=== PATIENT | male | born 1950 | race Caucasian/White ===

== ENCOUNTER 2018-04-03 15:19 | Inpatient (IN) | payer OTHER ==
[~2018-04-03] VITALS: Ht 177.8 cm; Wt 83.5 kg
--- NOTE | ~2018-04-03 | HC ---
[facility] [place] [address] CONSULTATION Name: MEHRAN FRAUSTO Room #: 358-P ADM IN M.R.#: [id number] Admission: 04/03/18 Attend Phys: Shawn Caldwell DO Discharge: Date of : 46 Report #: [id number] THIS REPORT FOR: //name// CC: Reymundo Caldwell DATE OF SERVICE: 04/05/2018 INFECTIOUS DISEASES CONSULTATION REASON FOR CONSULTATION: Acute appendicitis with possible abscess. HISTORY OF PRESENT ILLNESS: The patient is a 67-year-old with advanced ALS who has been bedbound and confined to a wheelchair for last several years. Three days ago, he had the acute onset of abdominal pain associated with fevers and chills. There was some dysuria. No nausea or vomiting. Has been constipated. Presented through the Emergency Room where a CAT scan showed evidence of inflammatory change of the cecum with 6 x 7 cm sized abscess. It was suspected appendiceal in nature. Also had some inflammation, which extended to the sigmoid colon. Placed on Zosyn. Fever went up to 103.1 degrees, now defervesced and feels somewhat better. Still having some right lower quadrant tenderness and some discomfort. He was evaluated for a drain, but no definite drainable fluid pocket was able to be established. No prior history of colon issues. No trauma. REVIEW OF SYSTEMS: CONSTITUTIONAL: As noted above. EYES: Negative. HEENT: Negative. RESPIRATORY: Negative. CARDIOVASCULAR: Negative. GASTROINTESTINAL: As above. GENITOURINARY: As above. MUSCULOSKELETAL: Negative. SKIN: Negative. NEUROLOGIC: ALS with paralysis of lower extremities. He does have some movement in his upper extremities. PSYCHIATRIC: Negative. LYMPHATIC: Negative. ALLERGIES: None. MEDICATIONS: As noted on his MAR including Zosyn. PAST MEDICAL HISTORY: ALS, hemorrhoids and some constipation issues. [facility] [address] [place] [address] CONSULTATION Name: MEHRAN FRAUSTO Room #: 358-P [facility] IN M.R.#: [id number] Admission: 04/03/18 Attend Phys: Shawn Caldwell DO Discharge: Date of : 46 Report #: [id number] FAMILY HISTORY: Noncontributory. SOCIAL HISTORY: Nonsmoker. No significant alcohol intake. Lives independently. PHYSICAL EXAMINATION: VITAL SIGNS: Afebrile and hemodynamically stable. GENERAL: He is alert and cooperative. In no acute distress. HEENT: Atraumatic. Pupils are equal, round and reactive to light. No conjunctivitis or scleral icterus. Mouth without lesion. NECK: Supple. SKIN: Without rash or lesion. LYMPH: Without palpable adenopathy. LUNGS: Clear. HEART: Regular. ABDOMEN: Soft with tenderness in the right lower quadrant. No guarding or rebound. Mild protuberance of his abdomen. Did have positive bowel sounds. GENITOURINARY: Had a Ramires catheter. External genitalia without rash or lesion. EXTREMITIES: Peripheral IV in place without drainage. NEUROLOGIC: Paralysis below the waist. Some weakness in his upper extremities. Cranial nerves intact. LABORATORY STUDIES: INR 1. Creatinine 0.4. Hemoglobin 13.9, platelet count 346,000, white count was 19.1 down from 25,000 yesterday. Urinalysis had 2+ protein, otherwise unremarkable. Blood cultures are pending. Repeat CT scan of the abdomen and pelvis today showed changes of appendicitis with phlegmonous changes and no drainable abscess. IMPRESSION: 1. Advanced amyotrophic lateral sclerosis. 2. Appendicitis with localized perforation and phlegmonous change. No drainable abscess. 3. Chronic constipation. 4. Hemorrhoids. RECOMMENDATIONS: We will continue IV antibiotic therapy with Zosyn. Place PICC line. We will need to get the area to calm down and proceed with elective surgery. We will need to follow this with serial imaging to ensure no drainable abscess develops. <ELECTRONICALLY SIGNED> By: Esa Abdalla MD 04/06/18 1318 [id number] Esa Abdalla MD /nt
[2018-04-03 15:20] VITALS: BP 125/73
[2018-04-03 15:41] LABS: HEMATOCRIT 46.5 % (42.0-52.0); HEMOGLOBIN 16.3 gm/dL (14.0-18.0); MCV 94.4 fL (80.0-100.0); PLATELET COUNT 345 thou/uL (150-400); RBC 4.92 mil/uL (4.50-6.00); RDW 12.9 % (10.5-14.5)
[2018-04-03 15:47] LABS: CALCIUM 9.2 mg/dL (8.5-10.1); CREATININE 0.5 mg/dL (0.7-1.3); POTASSIUM 4.2 mmol/L (3.5-5.1)
[2018-04-03 15:53] LABS: ALBUMIN 2.5 g/dL (3.4-5.0); TOTAL BILIRUBIN 1.8 mg/dL (<0.1-1.0); TOTAL PROTEIN 6.5 g/dL (6.4-8.2)
[2018-04-03 15:59] LABS: ABSOLUTE NEUTROPHILS 21.8 thou/uL (1.4-8.2)
[2018-04-03 16:00] LABS: ANISOCYTOSIS 1+; POLYCHROMASIA OCCASIONAL
[2018-04-03 16:42] LABS: URINE BILIRUBIN NEGATIVE (Negative); URINE BLOOD TRACE (Negative); URINE CLARITY CLEAR; URINE COLOR YELLOW; URINE GLUCOSE-RANDOM* NEGATIVE (Negative); URINE KETONES 1+ (Negative); URINE LEUKOCYTES-REFLEX NEGATIVE (Negative); URINE NITRITE-REFLEX NEGATIVE (Negative); URINE PROTEIN (DIPSTICK) 2+ (Negative); URINE SPECIFIC GRAVITY 1.025 (1.005-1.035)
[2018-04-03 16:54] LABS: BACTERIA-REFLEX 1-9 Few /HPF (None Seen); CASTS None Seen /LPF (None Seen); SQUAMOUS None Seen /LPF (0-3); URINE RBC 0-2 Rare /HPF (0-2); URINE WBC-REFLEX None Seen /HPF (0-5)
[2018-04-03 16:55] LABS: AMORPHOUS URATES Few /LPF (None Seen)
[2018-04-03 17:58] VITALS: BP 123/72
[2018-04-03 18:57] VITALS: BP 114/70
[2018-04-03] MEDS ORDERED: ESTAZOLAM2 MG PO (19:09)
[2018-04-03] MEDS ORDERED: VITAMIN A10000 UNI3 (19:10)
[2018-04-03] MEDS ORDERED: VITAMIN E400 UNIT PO (19:10)
[2018-04-03] MEDS ORDERED: VITAMINC500 PO (19:11)
[2018-04-03 19:46] VITALS: BP 116/67
[2018-04-03 23:59] VITALS: BP 104/50
[2018-04-04 04:21] VITALS: BP 135/67
[2018-04-04 06:16] LABS: HEMATOCRIT 43.1 % (42.0-52.0); HEMOGLOBIN 15.3 gm/dL (14.0-18.0); MCH 33.7 pg (26.0-34.0); MCHC 35.4 g/dL (28.0-37.0); MCV 95.3 fL (80.0-100.0); RBC 4.53 mil/uL (4.50-6.00); RDW 13.1 % (10.5-14.5); WBC 18.7 thou/uL (4.0-11.0)
[2018-04-04 06:24] LABS: CALCIUM 8.6 mg/dL (8.5-10.1); CREATININE 0.4 mg/dL (0.7-1.3)
[2018-04-04 06:33] LABS: POTASSIUM 3.2 mmol/L (3.5-5.1)
[2018-04-04 07:20] VITALS: BP 110/50
[2018-04-04 11:16] VITALS: BP 97/59
[2018-04-04 15:47] VITALS: BP 110/66
[2018-04-04 19:05] VITALS: BP 118/72
[2018-04-05 03:14] VITALS: BP 132/70
[2018-04-05 06:07] LABS: HEMATOCRIT 40.8 % (42.0-52.0); HEMOGLOBIN 13.9 gm/dL (14.0-18.0); MCH 32.8 pg (26.0-34.0); MCV 96.5 fL (80.0-100.0); RBC 4.23 mil/uL (4.50-6.00); RDW 13.4 % (10.5-14.5); WBC 19.1 thou/uL (4.0-11.0)
[2018-04-05 06:26] LABS: CREATININE 0.4 mg/dL (0.7-1.3); POTASSIUM 3.1 mmol/L (3.5-5.1)
[2018-04-05 07:53] VITALS: BP 96/52
[2018-04-05 07:55] LABS: PROTIME 10.6 Seconds (9.3-11.4)
[2018-04-05 11:54] VITALS: BP 115/64
[2018-04-05 15:30] VITALS: BP 111/67
[2018-04-05 20:10] VITALS: BP 111/71
[2018-04-06 04:35] VITALS: BP 123/76
[2018-04-06 07:00] LABS: HEMATOCRIT 38.3 % (42.0-52.0); HEMOGLOBIN 13.3 gm/dL (14.0-18.0); MCHC 34.7 g/dL (28.0-37.0); MCV 94.9 fL (80.0-100.0); RBC 4.04 mil/uL (4.50-6.00); RDW 12.9 % (10.5-14.5); WBC 17.3 thou/uL (4.0-11.0)
[2018-04-06 07:07] LABS: CALCIUM 8.1 mg/dL (8.5-10.1); CREATININE 0.4 mg/dL (0.7-1.3); POTASSIUM 3.2 mmol/L (3.5-5.1)
[2018-04-06 07:48] VITALS: BP 119/70
[2018-04-06 11:44] VITALS: BP 111/70
[2018-04-06 16:10] VITALS: BP 113/70
[2018-04-06 19:50] VITALS: BP 124/77
[2018-04-07 04:20] VITALS: BP 146/85
[2018-04-07 07:26] VITALS: BP 121/77
[2018-04-07 11:10] VITALS: BP 138/88
[2018-04-07 16:00] VITALS: BP 134/95
[2018-04-07 19:57] VITALS: BP 142/94
[2018-04-08 03:18] VITALS: BP 145/89
[2018-04-08 05:41] LABS: HEMATOCRIT 41.7 % (42.0-52.0); HEMOGLOBIN 14.7 gm/dL (14.0-18.0); MCH 33.3 pg (26.0-34.0); MCHC 35.4 g/dL (28.0-37.0); MCV 94.1 fL (80.0-100.0); RBC 4.43 mil/uL (4.50-6.00); RDW 13.1 % (10.5-14.5); WBC 19.1 thou/uL (4.0-11.0)
[2018-04-08 05:52] LABS: ALBUMIN 2.3 g/dL (3.4-5.0); CREATININE 0.4 mg/dL (0.7-1.3); POTASSIUM 3.7 mmol/L (3.5-5.1); TOTAL BILIRUBIN 0.7 mg/dL (<0.1-1.0); TOTAL PROTEIN 6.1 g/dL (6.4-8.2)
[2018-04-08 07:17] VITALS: BP 126/87
[2018-04-08 11:39] VITALS: BP 126/89
[2018-04-08 15:54] VITALS: BP 117/89
[2018-04-08 19:03] VITALS: BP 143/86
[2018-04-09 04:23] VITALS: BP 125/83
[2018-04-09 08:03] VITALS: BP 123/90
[2018-04-09 11:53] VITALS: BP 124/85
[2018-04-09 16:02] VITALS: BP 126/72
[2018-04-09 19:40] VITALS: BP 135/88
[2018-04-10 03:50] VITALS: BP 126/79
[2018-04-10 05:09] LABS: CALCIUM 9.2 mg/dL (8.5-10.1); CREATININE 0.5 mg/dL (0.7-1.3)
[2018-04-10 05:17] LABS: HEMATOCRIT 46.3 % (42.0-52.0); MCH 32.8 pg (26.0-34.0); MCHC 34.5 g/dL (28.0-37.0); MCV 95.2 fL (80.0-100.0); PLATELET COUNT 426 thou/uL (150-400); RBC 4.87 mil/uL (4.50-6.00); RDW 13.1 % (10.5-14.5); WBC 20.2 thou/uL (4.0-11.0)
[2018-04-10 08:15] VITALS: BP 110/78
[2018-04-10 08:22] LABS: ABSOLUTE NEUTROPHILS 16.4 thou/uL (1.4-8.2)
[2018-04-10 11:26] VITALS: BP 115/79
[2018-04-10 16:11] VITALS: BP 106/74
[2018-04-10 19:40] VITALS: BP 134/82
[2018-04-11 03:15] VITALS: BP 124/84
[2018-04-11 07:22] VITALS: BP 119/84
[2018-04-11 08:34] LABS: HEMOGLOBIN 15.7 gm/dL (14.0-18.0); MCH 32.2 pg (26.0-34.0); MCHC 33.4 g/dL (28.0-37.0); MCV 96.4 fL (80.0-100.0); RBC 4.88 mil/uL (4.50-6.00); WBC 16.4 thou/uL (4.0-11.0)
[2018-04-11 08:41] LABS: CALCIUM 9.3 mg/dL (8.5-10.1); CREATININE 0.6 mg/dL (0.7-1.3); POTASSIUM 3.9 mmol/L (3.5-5.1)
[2018-04-11 12:02] VITALS: BP 133/90
[2018-04-11 16:06] VITALS: BP 135/92
[2018-04-11 19:21] VITALS: BP 135/88
[2018-04-12 03:44] VITALS: BP 126/86
[2018-04-12 08:01] VITALS: BP 145/96
[2018-04-12 11:25] VITALS: BP 131/81
[2018-04-12] MEDS ORDERED: ZOSYN 3.373.375 GM/1 IV (12:21)
[2018-04-12] MEDS ORDERED: COLACE 100 MG100 MG PO (12:21)
[2018-04-12 12:59] LABS: URINE BILIRUBIN NEGATIVE (Negative); URINE BLOOD NEGATIVE (Negative); URINE CLARITY CLEAR; URINE COLOR YELLOW; URINE GLUCOSE-RANDOM* NEGATIVE (Negative); URINE KETONES NEGATIVE (Negative); URINE LEUKOCYTES-REFLEX NEGATIVE (Negative); URINE NITRITE-REFLEX NEGATIVE (Negative); URINE PROTEIN (DIPSTICK) NEGATIVE (Negative); URINE SPECIFIC GRAVITY <= 1.005 (1.005-1.035); URINE UROBILINOGEN 0.2 E.U./dl (0.2-1.0)
== END 2018-04-12 16:33 | DRG 871 ==
LOC: ER 15:19 → EROBS 17:52 → 3W 17:52
PROVIDERS: Hospitalist; Physician Assistant; Radiology Diagnostic Radiology; Specialist; Student in an Organized Health Care Education/Training Program
PROC: B54MZZA Ultrasonography of Right Upper Extremity Veins, Guidance (ICD-10-PCS; principal; 2018-04-05)
PROC: 05HB33Z Insertion of Infusion Device into Right Basilic Vein, Percutaneous Approach (ICD-10-PCS; principal; 2018-04-05)
DX: A41.9 Sepsis, unspecified organism (principal); K35.2 Acute appendicitis with generalized peritonitis; E43 Unspecified severe protein-calorie malnutrition; N39.0 Urinary tract infection, site not specified; G12.21 Amyotrophic lateral sclerosis; G82.20 Paraplegia, unspecified; J90 Pleural effusion, not elsewhere classified; N13.9 Obstructive and reflux uropathy, unspecified; E86.0 Dehydration; K59.09 Other constipation; K64.9 Unspecified hemorrhoids; M62.84 Sarcopenia; E87.6 Hypokalemia; G47.00 Insomnia, unspecified; Z79.899 Other long term (current) drug therapy
CPT/HCPCS: 10779; 27000

== ENCOUNTER → 2018-04-19 | Outpatient (CLI) | payer OTHER ==
[~2018-04-19] MED LIST: COLACE 100 MG100 MG PO; ESTAZOLAM2 MG PO; VITAMIN A10000 UNI3; VITAMIN E400 UNIT PO; VITAMINC500 PO; ZOSYN 3.373.375 GM/1 IV
== END ==
LOC: OPONC 01:34
DX: K36 Other appendicitis (principal); R10.31 Right lower quadrant pain; D72.828 Other elevated white blood cell count
CPT/HCPCS: 91022

== ENCOUNTER → 2018-04-26 | Outpatient (CLI) | payer OTHER | LOC: CAT 10:08 | DX: J98.11 Atelectasis (principal); J90 Pleural effusion, not elsewhere classified; K80.80 Other cholelithiasis without obstruction; K35.32 Acute appendicitis with perforation, localized peritonitis, and gangrene, without abscess | CPT/HCPCS: 91016 ==